=== PATIENT | male | born 1980 | race Caucasian/White ===

== ENCOUNTER 2016-12-04 09:43 | Emergency (ER) | payer MEDICAID ==
[~2016-12-04] VITALS: Ht 175.3 cm; Wt 94.8 kg
[~2016-12-04 09:43] MED LIST: AMITRIPTYLINE; BACL10TA PO; EZET10TA5 PO; HCT25T PO; IRB150T PO; LOXA10CA6 PO; MELO-198 PO; PANT20TA2 PO; TRL300 PO
--- OUTSIDE RECORDS SUMMARY | 2016-12-04 09:48 | XMS REPORT | Continuity of Care Document ---
Author Author [facility] Organization [facility] Address Unknown Phone Unavailable Care Team Providers [employer] Name Role Phone Starr Lepe PCP [phone] Source Comments Some departments are not documenting in the electronic medical record. If you do not see the information that you expected, contact Release of Information in the Health Information Management department at [phone] for further assistance in locating additional records.[facility] Active Allergies and Adverse Reactions Allergen Noted Date Severity Reactions Comments Penicillins 09/07/2015 Medium HIVES Rocephin 09/07/2015 Low UNKNOWN Current Medications Prescription Sig. Disp. Refills Start End Date Status Date amLODIPine (NORVASC) 5 mg Take 5 mg by mouth daily. Active tablet vortioxetine (BRINTELLIX) Take 20 mg by mouth Active 20 mg tab daily. ibuprofen (MOTRIN) 800 mg Take 800 mg by mouth Active tablet every 6 hours as needed for Pain. HYDROcodone/acetaminophen Take 1 Tab by mouth every Active (NORCO; VICODIN) 5-325 mg 4 hours as needed for tablet Pain irbesartan (AVAPRO) 300 Take 300 mg by mouth at Active mg tablet bedtime daily. DIPHENHYDRAMINE HCL Take by mouth as Needed. Active (BENADRYL ALLERGY PO) diazepam (VALIUM) 2 mg Take 2 mg by mouth every Active tablet 6 hours as needed for Anxiety. COQ10 (UBIQUINOL) PO Take 600 mg by mouth. Active fish oil /omega-3 fatty Take 1 Cap by mouth Active acids (SEA-OMEGA) daily. 340/1000 mg capsule FOLIC ACID PO Take 0.4 mg by mouth Active daily. GLUC/CHARLENE-MSM#1/VIT Take by mouth. Active C/FIORDALIZA/BOR (ZTCUKWFK-STTEU-JHV(WITH BORON) PO) MULTIVITAMINS WITH Take by mouth. Active FLUORIDE (MULTI-VITAMIN PO) omeprazole DR(+) Take 20 mg by mouth Active (PRILOSEC) 20 mg capsule daily. traMADol (ULTRAM) 50 mg Take 50 mg by mouth every Active tablet 6 hours as needed for Pain. riboflavin(+) (VITAMIN Take 100 mg by mouth Active B-2) 100 mg tab daily. ASCORBATE CALCIUM Take 1,000 mg by mouth. Active (VITAMIN C PO) OXcarbazepine (TRILEPTAL) Take 1 Tab by mouth twice 60 Tab 6 09/07/20 Active 300 mg tablet daily. 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 Social History Tobacco Use Types Packs/Day Years Used Date Never Smoker Smokeless Tobacco: Never Used Alcohol Use Drinks/Week oz/Week Comments No Last Filed Vital Signs Vital Sign Reading Time Taken Blood Pressure 141/80 01/11/2016 11:02 AM CDT Pulse 78 01/11/2016 11:02 AM CDT Temperature - - Respiratory Rate - - Height 1.753 m (5' 9") 01/11/2016 11:00 AM CDT Weight 108.863 kg (240 lb) 01/11/2016 11:00 AM CDT Body Mass Index 35.43 01/11/2016 11:00 AM CDT Oxygen Saturation - - Plan of Care Health Maintenance Due Date Last Done Comments Physical (Comprehensive) 1988 Exam Pertussis Vaccine 1992 Tetanus Vaccine 1998 Influenza Vaccine 06/29/2016 Results from Last 3 Months Not on file
[2016-12-04] MEDS ORDERED: [UNRECOGNIZED DRUG - OTHER] (09:58)
[2016-12-04] MEDS ORDERED: NORVAS (09:59)
[2016-12-04] MEDS ORDERED: NORVASC (10:00)
[2016-12-04] MEDS ORDERED: ASPIRIN 81 MG CHEW (CHILDREN'S ASA) PO ONE (10:30)
[2016-12-04] MEDS ORDERED: LIDOCAINE 2% VISCOUS 15 ML UDC PO ONE (10:30)
[2016-12-04] MEDS ORDERED: ANTACID SUSP 30 ML UDC (MYLANTA) PO ONE (10:30)
[2016-12-04 10:36] LABS: BASOPHILS # (AUTO) 0.1 10^3/uL (0.0-0.1); BASOPHILS % (AUTO) 1 % (0-10); EOSINOPHILS # (AUTO) 0.1 10^3/uL (0.0-0.3); EOSINOPHILS % (AUTO) 1 % (0-10); LYMPHOCYTES # (AUTO) 2.9 X 10^3 (1.0-4.0); LYMPHOCYTES % (AUTO) 36 % (12-44); MEAN CORPUSCULAR HEMOGLOBIN 31 PG (25-34); MEAN CORPUSCULAR HGB CONC 35 G/DL (32-36); MEAN CORPUSCULAR VOLUME 87 FL (80-99); MEAN PLATELET VOLUME 10.6 FL (7.4-10.4); MONOCYTES # (AUTO) 0.7 X 10^3 (0.0-1.0); MONOCYTES % (AUTO) 9 % (0-12); NEUTROPHILS # (AUTO) 4.3 X 10^3 (1.8-7.8); NEUTROPHILS % (AUTO) 53 % (42-75); PLATELET COUNT 276 10^3/uL (130-400); RED BLOOD COUNT 4.82 10^6/uL (4.35-5.85); RED CELL DISTRIBUTION WIDTH 13.2 % (10.0-14.5); WHITE BLOOD COUNT 8.1 10^3/uL (4.3-11.0)
[2016-12-04 10:48] LABS: PROTHROMBIN TIME PATIENT 12.5 SEC (12.2-14.7)
[2016-12-04 11:00] LABS: ALANINE AMINOTRANSFERASE 88 U/L (0-55); ALBUMIN 4.5 G/DL (3.2-4.5); ANION GAP 11 MMOL/L (5-14); ASPARTATE AMINO TRANSFERASE 27 U/L (5-34); BILIRUBIN,TOTAL 0.3 MG/DL (0.1-1.0); BLOOD UREA NITROGEN 17 MG/DL (7-18); BUN/CREATININE RATIO 21; CALCIUM 9.2 MG/DL (8.5-10.1); CARBON DIOXIDE 25 MMOL/L (21-32); CHLORIDE 105 MMOL/L (98-107); GFR ESTIMATED > 60; GLUCOSE 99 MG/DL (70-105); LIPASE 18 U/L (8-78); MAGNESIUM 2.7 MG/DL (1.8-2.4); SODIUM 141 MMOL/L (135-145); TOTAL PROTEIN 7.7 G/DL (6.4-8.2)
[2016-12-04 11:06] LABS: MYOGLOBIN SERUM 123.2 NG/ML (10.0-92.0)
--- NOTE | 2016-12-04 11:07 | Diagnostic Imaging Report ---
INDICATION: Chest pain. Portable chest at 10:56 a.m. FINDINGS: Heart size and pulmonary vascularity are normal. Lungs are clear. There are no effusions or pneumothoraces. IMPRESSION: Negative chest. Dictated by: Dictated on workstation # [id number]
--- NOTE | 2016-12-04 11:21 | ED Chest Pain ---
General Chief Complaint: Chest Wall/Rib Pain Stated Complaint: CHEST PAIN Nursing Triage Note: AMB TO ROOM C/O R SIDE CHEST PAIN ONSET YESTERDAY AT 430 Nursing Sepsis Screen: No Definite Risk Source: patient, old records Exam Limitations: no limitations History of Present Illness Time seen by provider: 09:48 Initial Comments Man presents to the emergency room with complaints of intermittent chest pain for about one week but much more intense over the last 12 hours. Pain intensified around 20:00 last night, dissipated, and then return more intensely at 04:00. He has had some mild shortness of air and dizziness and some generalized weakness. He reports having increased stress recently especially with an anticipated arrival of a child soon. He has been worked up for chest pain previously but reports this is more intense. In 2013 he had a negative stress echocardiogram. He reports starting Zoloft about 2 weeks ago for treatment of his stress and anxiety. He reports pain is presently approximately 3/10. He also has some tenderness in the epigastrium and lower sternal area. He later reports urinary frequency. Allergies and Home Medications Allergies Coded Allergies: Penicillins (Verified Allergy, Unknown, 07/02/09) ceftriaxone sodium (Verified Adverse Reaction, Mild, 01/01/12) Home Medications (Reported) (Reported) Baclofen 10 Mg Tablet #90 10 MG PO DAILY (Reported) Irbesartan 150 Mg Tab 150 MG PO DAILY (Reported) Review of Systems Constitutional: see HPI EENTM: No Symptoms Reported Respiratory: See HPI Cardiovascular: See HPI Gastrointestinal: See HPI Genitourinary: Frequency Musculoskeletal: see HPI Skin: no symptoms reported Psychiatric/Neurological: No Symptoms Reported Endocrine: No Symptoms Reported Hematologic/Lymphatic: No Symptoms Reported Past Givycqb-Lhcsbq-Cmhsai Hx Patient Social History Alcohol Use: Denies Use Recreational Drug Use: No Smoking Status: Never a Smoker Recent Foreign Travel: No Contact w/Someone Who Travel: No Recent Infectious Disease Expo: No Recent Hopitalizations: No Immunizations Up To Date Date of Influenza Vaccine: Jul 29, 2016 Surgeries HX Surgeries: Yes Surgeries: Gallbladder, Orthopedic, Vasectomy Respiratory Hx Respiratory Disorders: No Cardiovascular Hx Cardiac Disorders: Yes Cardiac Disorders: High Cholesterol, Hypertension Neurological Hx Neurological Disorders: No Genitourinary Hx Genitourinary Disorders: No Gastrointestinal Hx Gastrointestinal Disorders: Yes Gastrointestinal Disorders: Gastroesophageal Reflux Musculoskeletal Hx Musculoskeletal Disorders: Yes (SHOULDER/KNEE SURGERY) Endocrine Hx Endocrine Disorders: Yes (congenital mitochondrial disorder) HEENT HX ENT Disorders: No Cancer Hx Cancer: No Psychosocial Hx Psychiatric Problems: Yes Behavioral Health Disorders: Anxiety, Depression Integumentary HX Skin/Integumentary Disorder: No Blood Transfusions Hx Blood Disorders: No Physical Exam Vital Signs Vital Sign - Last 12Hours 12/04/16 09:43 Temp 96.7 Pulse 79 Resp 18 B/P 136/92 Pulse Ox 98 O2 Delivery Nasal Cannula O2 Flow Rate 2 Capillary Refill : Less Than 3 Seconds General Appearance: WD/WN Mild Distress HEENT: PERRL/EOMI Normal ENT Inspection Pharynx Normal Neck: Normal Inspection Respiratory: Lungs Clear Normal Breath Sounds No Accessory Muscle Use No Respiratory Distress Other (lower sternal area tender to palpation) Cardiovascular: Regular Rate, Rhythm No Edema No Murmur Gastrointestinal: Normal Bowel Sounds Soft Tenderness (epigastrium) Extremity: Normal Inspection Non Tender No Calf Tenderness No Pedal Edema Other (negative Jose A) Neurologic/Psychiatric: Alert Oriented x3 No Motor/Sensory Deficits Normal 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 Norm as Tested Skin: Normal Color Warm/Dry Progress/Results/Core Measures Results/Orders Lab Results Laboratory Tests Test 12/04/16 10:09 12/04/16 10:30 Range/Units Urine Bacteria NEGATIVE /HPF Urine Bilirubin NEGATIVE NEGATIVE Urine Casts NONE /LPF Urine Clarity CLEAR Urine Color YELLOW Urine Crystals NONE /LPF Urine Culture Indicated NO Urine Glucose (UA) NEGATIVE NEGATIVE Urine Ketones NEGATIVE NEGATIVE Urine Leukocyte Esterase NEGATIVE NEGATIVE Urine Mucus NEGATIVE /LPF Urine Nitrite NEGATIVE NEGATIVE Urine Protein NEGATIVE NEGATIVE Urine RBC NONE /HPF Urine RBC (Auto) NEGATIVE NEGATIVE Urine Specific [place] 1.020 1.016-1.022 Urine Squamous Epithelial Cells RARE /HPF Urine Urobilinogen NORMAL NORMAL MG/DL Urine WBC RARE /HPF Urine pH 6 5-9 Activated Partial Thromboplast Time 27 24-35 SEC Alanine Aminotransferase (ALT/SGPT) 88 H 0-55 U/L Albumin 4.5 3.2-4.5 G/DL Alkaline Phosphatase 91 40-136 U/L Anion Gap 11 5-14 MMOL/L Aspartate Amino Transf (AST/SGOT) 27 5-34 U/L BUN/Creatinine Ratio 21 Basophils # (Auto) 0.1 0.0-0.1 10^3/uL Basophils (%) (Auto) 1 0-10 % Blood Urea Nitrogen 17 7-18 MG/DL Calcium Level 9.2 8.5-10.1 MG/DL Carbon Dioxide Level 25 21-32 MMOL/L Chloride Level 105 98-107 MMOL/L Creatinine 0.80 0.60-1.30 MG/DL Eosinophils # (Auto) 0.1 0.0-0.3 10^3/uL Eosinophils (%) (Auto) 1 0-10 % Estimat Glomerular Filtration Rate > 60 Glucose Level 99 70-105 MG/DL Hematocrit 42 40-54 % Hemoglobin 14.7 13.3-17.7 G/DL INR Comment 1.0 0.8-1.4 Lipase 18 8-78 U/L Lymphocytes # (Auto) 2.9 1.0-4.0 X 10^3 Lymphocytes (%) (Auto) 36 12-44 % Magnesium Level 2.7 H 1.8-2.4 MG/DL Mean Corpuscular Hemoglobin 31 25-34 PG Mean Corpuscular Hemoglobin Concent 35 32-36 G/DL Mean Corpuscular Volume 87 80-99 FL Mean Platelet Volume 10.6 H 7.4-10.4 FL Monocytes # (Auto) 0.7 0.0-1.0 X 10^3 Monocytes (%) (Auto) 9 0-12 % Myoglobin 123.2 H 10.0-92.0 NG/ML Neutrophils # (Auto) 4.3 1.8-7.8 X 10^3 Neutrophils (%) (Auto) 53 42-75 % Platelet Count 276 130-400 10^3/uL Potassium Level 4.0 3.6-5.0 MMOL/L Prothrombin Time 12.5 12.2-14.7 SEC Red Blood Count 4.82 4.35-5.85 10^6/uL Red Cell Distribution Width 13.2 10.0-14.5 % Sodium Level 141 135-145 MMOL/L Total Bilirubin 0.3 0.1-1.0 MG/DL Total Protein 7.7 6.4-8.2 G/DL Troponin I < 0.30 <0.30 NG/ML White Blood Count 8.1 4.3-11.0 10^3/uL My Orders Orders-ANA NUÑEZ MD Cbc With Automated Diff (12/04/16 10:25) Magnesium (12/04/16 10:25) Chest 1 View, Ap/Pa Only (12/04/16 10:25) Ekg Tracing (12/04/16 10:25) Cardiac Profile 1 (12/04/16 10:25) Comprehensive Metabolic Panel (12/04/16 10:25) Myoglobin Serum (12/04/16 10:25) Protime With Inr (12/04/16 10:25) Partial Thromboplastin Time (12/04/16 10:25) O2 (12/04/16 10:25) Monitor-Rhythm Ecg Trace Only (12/04/16 10:25) Lipid Panel (12/05/16 06:00) Aspirin Chewable Tablet (Baby Aspirin Ch (12/04/16 10:30) Saline Lock/Iv-Start (12/04/16 10:25) Lipase (12/04/16 10:25) Lidocaine 2% Viscous 15 Ml (Xylocaine Vi (12/04/16 10:30) Antacid Suspension (Mylanta Suspension (12/04/16 10:30) Ua Culture If Indicated (12/04/16 11:24) Ketorolac Injection (Toradol Injection) (12/04/16 11:45) Medications Given in ED Current Medications Medications Dose Ordered Sig/Annika Route Start Time Stop Time Status Last Admin Dose Admin Al Hydrox/Mg Hydrox/Simethicone 30 ml ONCE ONCE PO 12/04/16 10:30 12/04/16 10:31 DC 12/04/16 10:33 30 ML Aspirin 324 mg ONCE ONCE PO 12/04/16 10:30 12/04/16 10:31 DC 12/04/16 10:34 324 MG Lidocaine HCl 15 ml ONCE ONCE PO 12/04/16 10:30 12/04/16 10:31 DC 12/04/16 10:35 15 ML Vital Signs/I&O Vital Sign - Last 12Hours 12/04/16 12/04/16 12/04/16 09:43 09:43 10:34 Temp 96.7 96.7 Pulse 79 Resp 18 B/P 136/92 Pulse Ox 98 O2 Delivery Nasal Cannula Room Air O2 Flow Rate 2 Blood Pressure Mean: 107 Progress Note : Time: 11:26 Progress Note Patient was treated with a GI cocktail as he had epigastric tenderness and tenderness to palpation over the lower chest. He now reports he cannot determine if the GI cocktail helped his chest pain. Workup is essentially unremarkable. Patient now complains of urinary frequency. A UA was ordered to workup this complaint. Patient's cardiopulmonary workup was unremarkable. Patient had a negative stress echo in 2013 and pain is of an atypical nature. Case was reviewed with Dr. Duckworth. We concur that he can safely follow up in the outpatient setting in regard to his cardiac health. ECG Initial ECG Impression Date: Dec 04, 2016 Initial ECG Impression Time: 09:46 Initial ECG Rate: 71 Initial ECG Rhythm: Normal Sinus Initial ECG Intervals: Normal Initial ECG Impression: Normal Comment Normal sinus rhythm with no ST elevation or depression. No abnormal intervals or axis deviation. Diagnostic Imaging Diagonstic Imaging: Xray Plain Films/CT/US/NM/MRI: chest Comments Chest x-ray report reviewed. See report below: NAME: [facility] REC#: [id number] PT STATUS: REG ER : 1980 PHYSICIAN: ANA NUÑEZ MD ADMIT DATE: 12/04/16/ER Draft Date of Exam:12/04/16 CHEST 1 VIEW, AP/PA ONLY INDICATION: Chest pain. Portable chest at 10:56 a.m. FINDINGS: Heart size and pulmonary vascularity are normal. Lungs are clear. There are no effusions or pneumothoraces. IMPRESSION: Negative chest. Dictated on workstation # [id number] Dict: 12/04/16 1103 Trans: 12/04/16 1107 [id number] Interpreted by: OSCAR WATKINS Departure Impression Impression: Primary Impression: Atypical chest pain Additional Impressions: Urinary frequency Abdominal discomfort, epigastric Disposition: 01 HOME, SELF-CARE Condition: Stable Departure-Patient Inst. Decision time for Depature: 11:40 Referrals: RONAK SALAZAR DO (PCP) Primary Care Physician Patient Instructions: Acute Abdomen (Belly Pain), Chest Pain That Is Not Caused by the Heart (DC) Add. Discharge Instructions: Continue taking Nexium for acid reflux. Take Tylenol for your pain. Follow-up with your primary care provider and Dr. Duckworth as soon as possible. All discharge instructions reviewed with patient and/or family. Voiced understanding. ANA NUÑEZ MD Dec 04, 2016 11:21
[2016-12-04 11:36] LABS: BILIRUBIN,URINE NEGATIVE (NEGATIVE); KETONES,URINE NEGATIVE (NEGATIVE); LEUKOCYTE ESTERASE ,URINE NEGATIVE (NEGATIVE); NITRITE,URINE NEGATIVE (NEGATIVE); PH,URINE 6 (5-9); PROTEIN,URINE NEGATIVE (NEGATIVE); UROBILINOGEN,URINE NORMAL (NORMAL)
[2016-12-04] MEDS ORDERED: KETOROLAC 30 MG/ML VIAL IVP ONE (11:45)
[2016-12-04 11:47] LABS: SQUAMOUS EPITHELIAL CELL,UR RARE /HPF; WBC,URINE RARE /HPF
[2016-12-04 12:07] VITALS: BP 138/92
== END 2016-12-04 12:10 | disposition home or self-care (01) ==
LOC: EDUNIT# 09:43 → ER 09:44
DX: R07.89 Other chest pain (principal); R10.13 Epigastric pain; R35.0 Frequency of micturition; I10 Essential (primary) hypertension; Z79.899 Other long term (current) drug therapy
CPT/HCPCS: 36415; 71010; 80053; 81000; 83690; 83735; 83874; 84484; 85025; 85610; 85730; 93005; 93041; 96374

== ENCOUNTER → 2017-02-28 | Outpatient (CLI) | payer MEDICAID ==
[~2017-02-28] MED LIST changes: +NORVAS; +NORVASC; +[UNRECOGNIZED DRUG - OTHER]
--- NOTE | 2017-02-28 13:13 | Diagnostic Imaging Report ---
EXAMINATION: Three views of the left elbow. INDICATION: Injury. FINDINGS: There is no fracture, dislocation, or radiopaque foreign body. There is prominence of the anterior fat pad. The posterior fat pad is not elevated. This could be related to a small elbow effusion. A small spur is seen at the olecranon near the quadriceps insertion site. IMPRESSION: No fracture is seen. Question of a small elbow effusion. Dictated by: Dictated on workstation # [id number]
== END ==
LOC: RAD 11:35
PROVIDERS: ATTEND Family Medicine
DX: S59.902A Unspecified injury of left elbow, initial encounter (principal); X58.XXXA Exposure to other specified factors, initial encounter; Y99.8 Other external cause status; Y93.E6 Activity, residential relocation
CPT/HCPCS: 73080

== ENCOUNTER → 2017-11-28 | Outpatient (CLI) | payer MEDICAID ==
--- NOTE | 2017-11-28 17:08 | Diagnostic Imaging Report ---
INDICATION: Injury with neck pain. AP, lateral, and odontoid views of the cervical spine are obtained. No fracture or acute bony abnormality is seen. Disc spaces show no significant narrowing. There is no prevertebral soft tissue swelling. Odontoid appears intact. IMPRESSION: Negative cervical spine series. Dictated by: Dictated on workstation # [id number]
--- NOTE | 2017-11-28 17:09 | Diagnostic Imaging Report ---
INDICATION: Scapular pain post injury AP and lateral views of the scapula are obtained. No overt fracture or acute bony abnormality is seen. IMPRESSION: Negative left scapula. Dictated by: Dictated on workstation # [id number]
--- NOTE | 2017-11-28 17:10 | Diagnostic Imaging Report ---
INDICATION: Left shoulder pain post injury. Internal and external rotated views of the left shoulder are obtained. No fracture or acute bony abnormality is seen. Joint spaces are unremarkable. IMPRESSION: Negative left shoulder. Dictated by: Dictated on workstation # [id number]
== END ==
LOC: RAD 16:27
PROVIDERS: ATTEND Family Medicine
DX: S49.92XA Unspecified injury of left shoulder and upper arm, initial encounter (principal); S19.9XXA Unspecified injury of neck, initial encounter; W20.8XXA Other cause of strike by thrown, projected or falling object, initial encounter
CPT/HCPCS: 72040; 73010; 73030

== ENCOUNTER → 2018-01-01 | Outpatient (CLI) | payer MEDICAID ==
--- NOTE | 2018-01-01 12:14 | Diagnostic Imaging Report ---
PROCEDURE: MR imaging cervical spine without contrast. TECHNIQUE: Multiplanar, multisequence MR imaging of the cervical spine was performed without contrast. INDICATION: Neck pain with radiculopathy. COMPARISON: Cervical spine radiographs 11/28/2017. FINDINGS: Normal alignment. Vertebral body heights preserved. Normal bone marrow signal. No abnormal signal in the cervical spinal cord. Small broad-based disc bulges at C3-C4 and C4-C5 results in only mild spinal canal narrowing. Uncovertebral and facet arthropathy results in mild bilateral neural foraminal narrowing at C3-C4 and C4-C5. No high-grade neural impingement in the cervical spine. The visualized paravertebral soft tissues are unremarkable. IMPRESSION: Mild spondylotic changes result in mild spinal canal and bilateral neural foraminal narrowing at C3-C4 and C4-C5. No high-grade neural impingement. No acute osseous findings. No abnormal signal in the cervical spinal cord. Dictated by: Dictated on workstation # [id number]
--- NOTE | 2018-01-01 12:16 | Diagnostic Imaging Report ---
EXAM: MRI THORACIC SPINE W/O CON INDICATION: Back pain. COMPARISON: Thoracic spine radiographs 02/16/2015. FINDINGS: Normal alignment. Vertebral body heights ??are preserved. Mild degenerative endplate changes and Schmorl's nodes at T6-T7 and T7-T8. Bone marrow signal is otherwise unremarkable. Small disc protrusions at T8-T9 and T9-T10 results in no substantial spinal canal narrowing. No neural foraminal narrowing in the thoracic spine. No abnormal signal in the thoracic spinal cord. Well-circumscribed T2 hyperintense lesions in the partially visualized kidneys presumably represent benign cysts but are technically indeterminate. IMPRESSION: Mild spondylotic changes result in no neural impingement. No abnormal signal the thoracic spinal cord. No acute osseous findings. Dictated by: Dictated on workstation # [id number]
== END ==
LOC: RAD 10:38
PROVIDERS: ATTEND Psychiatry & Neurology Neurology
DX: M48.02 Spinal stenosis, cervical region (principal); M47.22 Other spondylosis with radiculopathy, cervical region; M47.24 Other spondylosis with radiculopathy, thoracic region
CPT/HCPCS: 72141; 72146

== ENCOUNTER → 2018-01-02 | Outpatient (CLI) | payer MEDICAID ==
--- NOTE | 2018-01-02 12:02 | Diagnostic Imaging Report ---
PROCEDURE: MRI lumbar spine. TECHNIQUE: Multiplanar, multisequence MRI of the lumbar spine was performed without contrast. INDICATION: Back pain. No prior MRI lumbar spine studies are available for comparison. FINDINGS: Curvature and alignment of the lumbar spine is normal. The vertebral body heights are well maintained. Marrow signal intensity is unremarkable apart from a Schmorl's node involving the superior endplate of L5 vertebral body. This does demonstrate some minimal surrounding edema. There also appears to be a tiny Schmorl's node involving the inferior endplate of L4 with some associated edema. Remaining vertebral bodies show normal marrow signal. There is some desiccation of the L3-L4 and L4-L5 discs compatible with degenerative disc disease. The conus is unremarkable at the T12-L1 level. T12-L1: Unremarkable. L1-L2: Unremarkable. L2-L3: Unremarkable. L3-L4: There is some annular bulging present. There is linear increased T2 signal identified in the posterior midline annulus consistent with a small annular tear. There is some midline bulging indenting the ventral thecal sac. Mild canal narrowing is seen. There is narrowing of the lateral recesses bilaterally. No significant neuroforaminal stenosis is seen. L4-L5: Annular bulging is present indenting the ventral thecal sac. There is mild narrowing of the central canal. There is more significant narrowing of the lateral recesses. Far lateral disc bulging does produce some neuroforaminal narrowing bilaterally. The broad-based bulging does abut the L5 nerve root origins bilaterally. L5-S1: Central canal is widely patent. The neuroforamina are patent. There does appear to be hypertrophic facet degenerative change. IMPRESSION: L3-L4 and L4-L5 degenerative disc disease with annular bulging, as described above. There is central canal, lateral recess and neuroforaminal narrowing described level by level above. Patient does also have Schmorl's nodes at the L4 and L5 level with some surrounding edema, perhaps owing to acute Schmorl's nodes. No acute compression fracture is seen. Dictated by: Dictated on workstation # [id number]
== END ==
LOC: RAD 10:30
PROVIDERS: ATTEND Psychiatry & Neurology Neurology
DX: M48.061 Spinal stenosis, lumbar region without neurogenic claudication (principal); M47.27 Other spondylosis with radiculopathy, lumbosacral region; M51.16 Intervertebral disc disorders with radiculopathy, lumbar region; M51.46 Schmorl's nodes, lumbar region
CPT/HCPCS: 72148

== ENCOUNTER → 2018-03-29 | Outpatient (CLI) | payer MEDICAID ==
--- NOTE | 2018-03-29 14:00 | Diagnostic Imaging Report ---
INDICATION: Pain. COMPARISON: None. FINDINGS: Three views of the right shoulder are obtained. No acute fracture, malalignment or osseous destructive process is seen. IMPRESSION: Negative right shoulder. Dictated by: Dictated on workstation # [id number]
== END ==
LOC: RAD 11:16
PROVIDERS: ATTEND Family Medicine
DX: M25.511 Pain in right shoulder (principal)
CPT/HCPCS: 73030

== ENCOUNTER 2019-02-01 16:39 | Emergency (ER) | payer OTHER, MEDICAID ==
[~2019-02-01] VITALS: Ht 175.3 cm; Wt 79.4 kg
[2019-02-01 17:12] LABS: HEMOGLOBIN 14.7 G/DL (13.3-17.7); RED CELL DISTRIBUTION WIDTH 12.5 % (10.0-14.5); WHITE BLOOD COUNT 12.4 10^3/uL (4.3-11.0)
[2019-02-01] MEDS ORDERED: fentaNYL INJECTION 100 MCG/2 ML AMP IVP ONE (17:15)
[2019-02-01] MEDS ORDERED: TETANUS,DIPTH,PERTUSS P/F (BOOSTRIX) 0.5 ML VIAL IM ONE (17:15)
[2019-02-01 17:25] LABS: ALANINE AMINOTRANSFERASE 26 U/L (0-55); ALBUMIN 4.4 GM/DL (3.2-4.5); ALKALINE PHOSPHATASE 86 U/L (40-136); BILIRUBIN,DIRECT 0.2 MG/DL (0.0-0.3); BILIRUBIN,INDIRECT 0.2 MG/DL; BILIRUBIN,TOTAL 0.4 MG/DL (0.1-1.0); BUN/CREATININE RATIO 16; CALCIUM 9.5 MG/DL (8.5-10.1); CARBON DIOXIDE 18 MMOL/L (21-32); CHLORIDE 106 MMOL/L (98-107); CREATININE SERUM 1.14 MG/DL (0.60-1.30); GFR ESTIMATED > 60; GLUCOSE 121 MG/DL (70-105); POTASSIUM 3.6 MMOL/L (3.6-5.0); SODIUM 138 MMOL/L (135-145); TOTAL PROTEIN 7.6 GM/DL (6.4-8.2)
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
--- OUTSIDE RECORDS SUMMARY | 2019-02-01 18:55 | XMS REPORT ---
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 Name Role Phone Migration, Doctor Unavailable Unavailable PROBLEMS Type Condition ICD9-CM Code ZAT56-SX Code Onset Dates Condition Status SNOMED Code Problem Pain in thoracic spine 724.1 Active 451738076 Problem Candidiasis of skin and nails 112.3 Active 011278147 Problem Need for prophylactic vaccination and inoculation, Influenza V04.81 Active 159803119 Problem Headache 784.0 Active 85068210 Problem Cervicalgia 723.1 Active 69632546 Problem Pain in joint, shoulder region 719.41 Active 349504468 ALLERGIES No Information ENCOUNTERS Encounter Location Date Diagnosis [facility] [id number] [place] [phone] Jan, [facility] [id number] [place] [address]- [address] Jan, [facility] [id number] [place] [address]- [address] Jun, [facility] [id number] [place] [address]- [address] Jun, [facility] [address] [address] Apr, [facility] [id number] [place] [address]- [address] Mar, [facility] [id number] [place] [address] 388102- [address] February, [facility] [id number] [place] [address] [id number] Dec, [facility] [id number] [place] [address]- [address] Nov, [facility] [address] [facility] [id number] [place] [address] Oct, [facility] [address] [id number] [place] [address] Oct, [facility] [place] [facility] [address] [id number] [place] [address] Sep, [facility] [place] [facility] [address] [id number] [place] [address] Sep, [facility] [place] [facility] [address] [id number] [place] [address] Sep, [facility] [place] [facility] [address] [id number] [place] [address] Sep, [facility] [place] [facility] [address] [id number] [place] [address] Sep, [facility] [place] [facility] [address] [id number] [place] [address] February, [facility] [address] [id number] [place] [address] Dec, [facility] [place] [facility] [address] [id number] [place] [address] Dec, [facility] [address] [id number] [place] [address] Dec, [facility] [place] [facility] [address] [id number] [place] [address] 14 Nov, 2011 [facility] [place] [facility] [address] [id number] [place] [address] 07 Nov, 2011 [facility] [place] [facility] [address] [id number] [place] [address] Nov, [facility] [place] [facility] [address] [id number] [place] [address] 03 Nov, 2011 [facility] [place] [facility] [address] [id number] [place] [address] Oct, [facility] [address] [facility] [id number] [address] Oct, [facility] [address] [address] Aug, [facility] [address] [address] Aug, [facility] [address] [address] Aug, [facility] [id number] [address] Jul, [facility] [id number] [address] Jul, IMMUNIZATIONS No Known Immunizations SOCIAL HISTORY Never Assessed REASON FOR VISIT [facility]MR-[facility] PLAN OF CARE VITAL SIGNS MEDICATIONS Unknown Medications RESULTS No Results PROCEDURES No Known procedures INSTRUCTIONS MEDICATIONS ADMINISTERED No Known Medications
--- OUTSIDE RECORDS SUMMARY | 2019-02-01 18:55 | XMS REPORT | Clinical Summary ---
Author Author [facility] Organization [facility] Address Unknown Phone Unavailable Care Team Providers Care Homicide Squad Lieutenant Name Role Phone Wilton Del Angel MD Unavailable Starr Lepe MD PCP Aby Monroe Unavailable Billy Cochran MD Unavailable Source Comments Some departments are not documenting in the electronic medical record. If you do not see the information that you expected, contact Release of Information in the Health Information Management department at [phone] for further assistance in locating additional records.[facility] Allergies Comments Active Allergy Reactions Severity Noted Date Penicillins HIVES Medium 09/07/2015 Ceftriaxone UNKNOWN Low 09/07/2015 Medications End Date Status Medication Sig Dispensed Refills Start Date Active irbesartan (AVAPRO) 300 Take 300 mg 0 mg tablet by mouth at bedtime daily. Active COQ10 (UBIQUINOL) PO Take 600 mg 0 by mouth. Active fish oil /omega-3 fatty Take 1 Cap by 0 acids (SEA-OMEGA) mouth daily. 340/1000 mg capsule Active FOLIC ACID PO Take 0.4 mg 0 by mouth daily. Active GLUC/CHARLENE-MSM#1/VIT Take by 0 C/FIORDALIZA/BOR mouth. (THLULBMK-USVLX-MJG(WITH BORON) PO) Active MULTIVITAMINS WITH Take by 0 FLUORIDE (MULTI-VITAMIN mouth. PO) Active riboflavin(+) (VITAMIN Take 100 mg 0 B-2) 100 mg tab by mouth daily. Active ASCORBATE CALCIUM Take 1,000 mg 0 (VITAMIN C PO) by mouth. Active amLODIPine (NORVASC) 10 Take 10 mg by 0 mg tablet mouth daily. Active acetaminophen/codeine Take 1 tablet 0 (TYLENOL-CODEINE #3) by mouth 300/30 mg tablet every 6 hours as needed for Pain. Max of 4,000 mg of acetaminophen in 24 hours. Active amitriptyline (ELAVIL) Take 100 mg 0 100 mg tablet by mouth at bedtime as needed. Active topiramate (TOPAMAX) 25 Take 25 mg by 0 mg tablet mouth daily. Active metoprolol tartrate Take 25 mg by 0 (LOPRESSOR) 25 mg tablet mouth twice daily. Active CETIRIZINE HCL (ZYRTEC Take by 0 PO) mouth. 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 Last Filed Vital Signs Time Taken Vital Sign Reading 02/21/2018 1:56 PM CDT Blood Pressure 123/80 02/21/2018 1:56 PM CDT Pulse 106 02/21/2018 1:56 PM CDT Temperature 36.6 C (97.8 F) - Respiratory Rate - 02/21/2018 1:56 PM CDT Oxygen Saturation 98% - Inhaled Oxygen - Concentration 02/21/2018 1:56 PM CDT Weight 89.3 kg (196 lb 13.9 oz) 02/21/2018 1:56 PM CDT Height 175.3 cm (5' 9") 02/21/2018 1:56 PM CDT Body Mass Index 29.07 Plan of Treatment Health Maintenance Due Date Last Done Comments PHYSICAL (COMPREHENSIVE) 1988 EXAM HIV SCREENING 1996 DTAP/TDAP VACCINES ( - 1999 Tdap) INFLUENZA VACCINE 05/29/2019 08/28/2003, 09/12/2002, 08/23/2001 Results Not on filefrom Last 3 Months Insurance Type Payer Benefit Subscriber ID Effective Phone Address Plan / Dates Group Medicaid [employer] [employer] xxxxxxxxxxx 2010- [facility] Present HEALTH [address] [facility] (Home) [place] [address] Advance Directives Patient has advance care planning documents on file. For more information, please contact: [facility] [address] [place] [address]
--- OUTSIDE RECORDS SUMMARY | 2019-02-01 18:56 | XMS REPORT | Continuity of Care Document ---
Author Organization Unknown Address Unknown Allergies Active Description Code Type Severity Reaction Onset Reported/Identified Relationship to Patient Clinical Status Yes Penicillins [id number] Drug Allergy Unknown N/A 07/02/2009 Yes Penicillins Drug Allergy N/A N/A 06/22/2011 Yes Rocephin Drug Allergy N/A N/A 06/22/2011 Yes Penicillins Drug Allergy 06/22/2011 Yes Rocephin Drug Allergy 06/22/2011 Yes penicillamine Drug Allergy N/ A N/A 08/29/2011 Yes penicillamine Drug Allergy 08/29/2011 Yes ceftriaxone sodium [id number] Drug Allergy Mild N/A 01/01/2012 Medications There is no data. Problems Date Dx Coded Attending Type Code Diagnosis Diagnosed By KATIE CORREA, ROBBY Villela Ot M25.561 PAIN IN RIGHT KNEE 09/27/1444 RACHEAL TO Ot M54.2 CERVICALGIA 01/14/2009 296.90 MOOD DISORDER 01/14/2009 307.47 SI DYSSOMNIA NOS 01/14/2009 296.90 MOOD DISORDER 01/14/2009 307.47 SI DYSSOMNIA NOS 01/14/2009 DIMA OATES DO 296.90 MOOD DISORDER 01/14/2009 DIMA OATES DO 307.47 SI DYSSOMNIA NOS 01/14/2009 296.90 MOOD DISORDER 01/14/2009 307.47 SI DYSSOMNIA NOS 01/14/2009 DIMA OATES DO 296.90 MOOD DISORDER 01/14/2009 DIMA OATES DO 307.47 SI DYSSOMNIA NOS 01/14/2009 DIMA OATES DO 296.90 MOOD DISORDER 01/14/2009 DIMA OATES DO 307.47 SI DYSSOMNIA NOS 04/15/2009 356.2 HEREDITARY SENSORY NEUROPATHY 04/15/2009 356.2 HEREDITARY SENSORY NEUROPATHY 04/15/2009 DIMA OATES DO 356.2 HEREDITARY SENSORY NEUROPATHY 04/15/2009 356.2 HEREDITARY SENSORY NEUROPATHY 04/15/2009 OATES DO DIMA K 356.2 HEREDITARY SENSORY NEUROPATHY 04/15/2009 OATES DO, DIMA K 356.2 HEREDITARY SENSORY NEUROPATHY 05/26/2009 277.86 PEROXISOMAL DISORDERS 05/26/2009 294.9 OR COG DIS NOS 05/26/2009 277.86 PEROXISOMAL DISORDERS 05/26/2009 294.9 OR COG DIS NOS 05/26/2009 OATES DO, DIMA K 277.86 PEROXISOMAL DISORDERS 05/26/2009 OATES DO, DIMA K 294.9 OR COG DIS NOS 05/26/2009 277.86 PEROXISOMAL DISORDERS 05/26/2009 294.9 OR COG DIS NOS 05/26/2009 OATES DO, DIMA K 277.86 PEROXISOMAL DISORDERS 05/26/2009 OATES DO, DIMA K 294.9 OR COG DIS NOS 05/26/2009 OATES DO, DIMA K 277.86 PEROXISOMAL DISORDERS 05/26/2009 OATES DO, DIMA K 294.9 OR COG DIS NOS 06/17/2010 Ot 401.9 06/17/2010 Ot 719.41 06/17/2010 Ot V57.1 09/12/2010 Ot 719.41 JOINT PAIN- SHLDER 09/12/2010 Ot V57.1 PHYSICAL THERAPY NEC 09/12/2010 Ot V58.49 OTHER SPECIFIED AFTERCARE FOLLOWING SURG 06/22/2011 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 06/22/2011 401.9 HYPERTENSION ( SYSTEMIC) 06/22/2011 461.8 Other Acute Sinusitis 06/22/2011 462 Acute Pharyngitis 06/22/2011 719.46 PAIN IN JOINT INVOLVING LOWER LEG 06/22/2011 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 06/22/2011 401.9 HYPERTENSION ( SYSTEMIC) 06/22/2011 461.8 Other Acute Sinusitis 06/22/2011 462 Acute Pharyngitis 06/22/2011 719.46 PAIN IN JOINT INVOLVING LOWER LEG 06/22/2011 LASHON OHARA DIMA K 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 06/22/2011 OATES DO DIMA K 401.9 HYPERTENSION (SYSTEMIC) 06/22/2011 OATES DO DIMA K 461.8 Other Acute Sinusitis 06/22/2011 LASHON OHARA DIMA K 462 Acute Pharyngitis 06/22/2011 OATES DO, DIMA K 719.46 PAIN IN JOINT INVOLVING LOWER LEG 06/22/2011 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 06/22/2011 401.9 HYPERTENSION ( SYSTEMIC) 06/22/2011 461.8 Other Acute Sinusitis 06/22/2011 462 Acute Pharyngitis 06/22/2011 719.46 PAIN IN JOINT INVOLVING LOWER LEG 06/22/2011 DIMA OATES DO K 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 06/22/2011 DIMA OATES DO K 401.9 HYPERTENSION (SYSTEMIC) 06/22/2011 GLENN OATES DOA K 461.8 Other Acute Sinusitis 06/22/2011 GLENN OATES DOA K 462 Acute Pharyngitis 06/22/2011 GLENN OATES DOA K 719.46 PAIN IN JOINT INVOLVING LOWER LEG 06/22/2011 GLENN OATES DOA K 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 06/22/2011 DIMA OATES DO K 401.9 HYPERTENSION (SYSTEMIC) 06/22/2011 DIMA OATES DO K 461.8 Other Acute Sinusitis 06/22/2011 GLENN OATES DOA K 462 Acute Pharyngitis 06/22/2011 GLENN OATES DOA K 719.46 PAIN IN JOINT INVOLVING LOWER LEG 07/10/2011 836.1 DISLOCATION OF KNEE TEAR OF LATERAL CARTILAGE 07/10/2011 836.1 DISLOCATION OF KNEE TEAR OF LATERAL CARTILAGE 07/10/2011 DIMA OATES DO K 836.1 DISLOCATION OF KNEE TEAR OF LATERAL CARTILAGE 07/10/2011 836.1 DISLOCATION OF KNEE TEAR OF LATERAL CARTILAGE 07/10/2011 DIMA OATES DO K 836.1 DISLOCATION OF KNEE TEAR OF LATERAL CARTILAGE 07/10/2011 DIMA OATES DO K 836.1 DISLOCATION OF KNEE TEAR OF LATERAL CARTILAGE 08/29/2011 461.9 Sinusitis Acute 08/29/2011 462 Acute Pharyngitis 08/29/2011 461.9 Sinusitis Acute 08/29/2011 462 Acute Pharyngitis 08/29/2011 DIMA OATES DO K 461.9 Sinusitis Acute 08/29/2011 DIMA OATES DO K 462 Acute Pharyngitis 08/29/2011 461.9 Sinusitis Acute 08/29/2011 462 Acute Pharyngitis 08/29/2011 OATES DO, DIMA K 461.9 Sinusitis Acute 08/29/2011 OATES DO, DIMA K 462 Acute Pharyngitis 08/29/2011 OATES DO, DIMA K 461.9 Sinusitis Acute 08/29/2011 OATES DO, DIMA K 462 Acute Pharyngitis 09/12/2011 268.9 UNSPECIFIED VITAMIN D DEFICIENCY 09/12/2011 272.4 OTHER AND UNSPECIFIED HYPERLIPIDEMIA 09/12/2011 268.9 UNSPECIFIED VITAMIN D DEFICIENCY 09/12/2011 272.4 OTHER AND UNSPECIFIED HYPERLIPIDEMIA 09/12/2011 OATES DO, DIMA K 268.9 UNSPECIFIED VITAMIN D DEFICIENCY 09/12/2011 OATES DO, DIMA K 272.4 OTHER AND UNSPECIFIED HYPERLIPIDEMIA 09/12/2011 268.9 UNSPECIFIED VITAMIN D DEFICIENCY 09/12/2011 272.4 OTHER AND UNSPECIFIED HYPERLIPIDEMIA 09/12/2011 OATES DO, DIMA K 268.9 UNSPECIFIED VITAMIN D DEFICIENCY 09/12/2011 OATES DO, DIMA K 272.4 OTHER AND UNSPECIFIED HYPERLIPIDEMIA 09/12/2011 OATES DO, DIMA K 268.9 UNSPECIFIED VITAMIN D DEFICIENCY 09/12/2011 OATES DO, DIMA K 272.4 OTHER AND UNSPECIFIED HYPERLIPIDEMIA 12/01/2011 784.0 HEADACHE 12/01/2011 784.0 HEADACHE 12/01/2011 OATES DO, DIMA K 784.0 HEADACHE 12/01/2011 784.0 HEADACHE 12/01/2011 OATES DO, DIMA K 784.0 HEADACHE 12/01/2011 OATES DO, DIMA K 784.0 HEADACHE 12/29/2011 Ot 717.7 CHONDROMALACIA PATELLAE 12/29/2011 Ot V57.1 PHYSICAL THERAPY NEC 01/01/2012 Ot 307.81 TENSION HEADACHE 01/01/2012 Ot 723.1 CERVICALGIA 01/01/2012 Ot V57.1 PHYSICAL THERAPY NEC 01/01/2012 Ot 920 CONTUSION FACE/ SCALP/NCK 01/01/2012 Ot 959.09 INJURY OF FACE AND NECK 01/01/2012 Ot E000.8 OTHER EXTERNAL CAUSE STATUS 01/01/2012 Ot E849.0 ACCIDENT IN HOME 01/01/2012 Ot E885.9 FALL FROM SLIPPING, TRIPPING, OR STUMBLI 01/04/2012 719.41 joint pain, localized in the right shoulder 01/04/2012 719.41 joint pain, localized in the right shoulder 01/04/2012 DIMA OATES DO 719.41 joint pain, localized in the right shoulder 01/04/2012 719.41 joint pain, localized in the right shoulder 01/04/2012 DIMA OATES DO 719.41 joint pain, localized in the right shoulder 01/04/2012 DIMA OATES DO 719.41 joint pain, localized in the right shoulder 02/28/2012 Ot 719.41 JOINT PAIN- SHLDER 02/28/2012 Ot V57.1 PHYSICAL THERAPY NEC 02/28/2012 Ot V58.43 AFTERCARE POST SURGERY INJURY/TRAUMA 03/04/2012 112.3 Candidiasis Of Skin And Nails 03/04/2012 112.3 Candidiasis Of Skin And Nails 03/04/2012 DIMA OATES DO 112.3 Candidiasis Of Skin And Nails 03/04/2012 112.3 Candidiasis Of Skin And Nails 03/04/2012 DIMA OATES DO 112.3 Candidiasis Of Skin And Nails 03/04/2012 DIMA OATES DO 112.3 Candidiasis Of Skin And Nails 06/28/2012 Ot 717.7 CHONDROMALACIA PATELLAE 06/28/2012 Ot V57.1 PHYSICAL THERAPY NEC 11/25/2012 Ot 726.2 SHOULDER REGION DIS NEC 11/25/2012 Ot V57.1 PHYSICAL THERAPY NEC 12/16/2012 723.1 CERVICALGIA 12/16/2012 724.1 PAIN IN THORACIC SPINE 12/16/2012 DIMA OATES DO 723.1 CERVICALGIA 12/16/2012 DIMA OATES DO 724.1 PAIN IN THORACIC SPINE 12/16/2012 DIMA OATES DO K 723.1 CERVICALGIA 12/16/2012 DIMA OATES DO 724.1 PAIN IN THORACIC SPINE 01/14/2013 Ot 723.1 CERVICALGIA 01/14/2013 Ot V57.1 PHYSICAL THERAPY NEC 03/13/2013 KATIE CORREA, ROBBY Villela Ot V57.1 PHYSICAL THERAPY NEC 03/13/2013 KATIE CORREA, ROBBY Villela Ot V58.78 AFTERCARE POST SURGERY MUSCULOSKELETAL S 06/13/2013 BART OSORIO Ot 719.41 JOINT PAIN-SHLDER 06/13/2013 BART OSORIOP Ot V57.1 PHYSICAL THERAPY NEC 06/13/2013 BART OSORIO LEAN MANUFACTURING ENGINEER Ot V58.49 OTHER SPECIFIED AFTERCARE FOLLOWING SURG 07/23/2013 DIMA OATES DO V04.81 FLU SHOT 10/20/2013 VANIA MCKINNEY MD Ot 715.36 LOC OSTEOARTH NOS-L/LEG 10/20/2013 VANIA MCKINNEY MD Ot V57.1 PHYSICAL THERAPY NEC 05/14/2014 WILFRID HUFFMAN MD Ot 272.4 HYPERLIPIDEMIA NEC/NOS 05/14/2014 WILFRID HUFFMAN MD Ot 401.9 HYPERTENSION NOS 05/14/2014 WILFRID HUFFMAN MD Ot 786.50 CHEST PAIN NOS 07/14/2014 OSCAR CURTIS MD Ot 786.50 CHEST PAIN NOS 08/27/2014 VANIA MCKINNEY MD Ot 348.39 OTHER ENCEPHALOPATHY 08/27/2014 VANIA MCKINNEY MD Ot V57.1 PHYSICAL THERAPY NEC 10/05/2014 AKBAR DA SILVA MD Ot 272.4 10/05/2014 AKBAR DA SILVA MD Ot 278.00 10/05/2014 AKBAR DA SILVA MD Ot 397.0 10/05/2014 AKBAR DA SILVA MD Ot 401.9 10/05/2014 AKBAR DA SILVA MD Ot 424.0 10/05/2014 AKBAR DA SILVA MD Ot 786.50 04/07/2015 VANIA MCKINNEY MD Ot 724.1 04/07/2015 VANIA MCKINNEY MD Ot E000.8 04/07/2015 VANIA MCKINNEY MD Ot E888.9 06/29/2015 Ot 719.46 06/29/2015 Ot 277.87 06/29/2015 Ot 784.0 06/29/2015 Ot 277.87 06/29/2015 VANIA MCKINNEY MD Ot 722.4 06/29/2015 AKBAR DA SILVA MD Ot 272.4 06/29/2015 AKBAR DA SILVA MD Ot 278.00 06/29/2015 AKBAR DA SILVA MD Ot 397.0 06/29/2015 AKBAR DA SILVA MD Ot 401.9 06/29/2015 AKBAR DA SILVA MD Ot 424.0 06/29/2015 REKHA CORREA, AKBAR Franco Ot 786.50 06/29/2015 FAYE CORREA, VANIA Griffiths Ot 724.1 06/29/2015 FAYE CORREA, VANIA Griffiths Ot E000.8 06/29/2015 FAYE CORREA, VANIA Griffiths Ot E888.9 06/30/2015 DUGLAS ALICE E COTTON CLEANER Ot 723.4 06/30/2015 DUGLAS ALICE E COTTON CLEANER Ot V57.1 07/01/2015 DUGLAS, ALICE E COTTON CLEANER Ot 723.4 07/01/2015 DUGLAS, ALICE E COTTON CLEANER Ot V57.1 07/01/2015 DUGLAS ALICE E COTTON CLEANER Ot 723.4 07/01/2015 DUGLAS ALICE E COTTON CLEANER Ot V57.1 07/27/2015 DUGLAS ALICE E COTTON CLEANER Ot 723.4 BRACHIAL NEURITIS NOS 07/27/2015 ALICE ARDON COTTON CLEANER Ot V57.1 PHYSICAL THERAPY NEC 07/27/2015 ALICE ARDON E COTTON CLEANER Ot Z51.89 ENCOUNTER FOR OTHER SPECIFIED AFTERCARE 11/26/2015 Ot 719.46 11/26/2015 Ot 277.87 11/26/2015 Ot 784.0 11/26/2015 Ot 277.87 11/26/2015 FAYE CORREA, VANIA Griffiths Ot 722.4 11/26/2015 REKHA CORREA, AKBAR Franco Ot 272.4 11/26/2015 REKHA CORREA, AKBAR Franco Ot 278.00 11/26/2015 REKHA CORREA, AKBAR Franco Ot 397.0 11/26/2015 REKHA CORREA, AKBAR Franco Ot 401.9 11/26/2015 REKHA CORREA, AKBAR Franco Ot 424.0 11/26/2015 AKBAR DA SILVA MD Ot 786.50 11/26/2015 FAYE CORREA, VANIA Griffiths Ot 724.1 11/26/2015 FAYE CORREA, VANIA Griffiths Ot E000.8 11/26/2015 FAYE CORREA, VANIA Griffiths Ot E888.9 12/14/2015 FAYE CORREA, VANIA Griffiths Ot R10.11 02/01/2016 Ot 719.46 02/01/2016 Ot 277.87 02/01/2016 Ot 784.0 02/01/2016 Ot 277.87 02/01/2016 VANIA MCKINNEY MD Ot 722.4 02/01/2016 AKBAR DA SILVA MD Ot 272.4 02/01/2016 AKBAR DA SILVA MD Ot 278.00 02/01/2016 AKBAR DA SILVA MD Ot 397.0 02/01/2016 AKBAR DA SILVA MD Ot 401.9 02/01/2016 AKBAR DA SILVA MD Ot 424.0 02/01/2016 AKBAR DA SILVA MD Ot 786.50 02/01/2016 VANIA MCKINNEY MD Ot 724.1 02/01/2016 VANIA MCKINNEY MD Ot E000.8 02/01/2016 VANIA MCKINNEY MD Ot E888.9 02/01/2016 VANIA MCKINNEY MD Ot R10.11 02/02/2016 RACHEAL TO LEAN MANUFACTURING ENGINEER Ot M54.2 02/04/2016 RACHEAL TO LEAN MANUFACTURING ENGINEER Ot M54.2 02/22/2016 Ot 719.46 JOINT PAIN-L /LEG 02/22/2016 Ot 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 02/22/2016 Ot 784.0 HEADACHE 02/22/2016 Ot 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 02/22/2016 VANIA MCKINNEY MD Ot 722.4 CERVICAL DISC DEGEN 02/22/2016 AKBAR DA SILVA MD Ot 272.4 HYPERLIPIDEMIA NEC/NOS 02/22/2016 AKBAR DA SILVA MD Ot 278.00 OBESITY, NOS 02/22/2016 AKBAR DA SILVA MD Ot 397.0 TRICUSPID VALVE DISEASE 02/22/2016 AKBAR DA SILVA MD Ot 401.9 HYPERTENSION NOS 02/22/2016 AKBAR DA SILVA MD Ot 424.0 MITRAL VALVE DISORDER 02/22/2016 AKBAR DA SILVA MD Ot 786.50 CHEST PAIN NOS 02/22/2016 VANIA MCKINNEY MD Ot 724.1 PAIN IN THORACIC SPINE 02/22/2016 VANIA MCKINNEY MD Ot E000.8 OTHER EXTERNAL CAUSE STATUS 02/22/2016 VANIA MCKINNEY MD Ot E888.9 FALL NOS 02/22/2016 VANIA MCKINNEY MD Ot R10.11 RIGHT UPPER QUADRANT PAIN 02/22/2016 RACHEAL TO LEAN MANUFACTURING ENGINEER Ot M54.2 CERVICALGIA 03/07/2016 RACHEAL TO Ot M54.2 CERVICALGIA 04/04/2016 ROBBY WILSON MD Ot M25.561 PAIN IN RIGHT KNEE 04/05/2016 ROBBY WILSON MD Ot M25.561 PAIN IN RIGHT KNEE 04/19/2016 ROBBY WILSON MD Ot M25.561 PAIN IN RIGHT KNEE 12/04/2016 ANA NUÑEZ MD Ot I10 ESSENTIAL (PRIMARY) HYPERTENSION 12/04/2016 ANA NUÑEZ MD Ot R07.89 OTHER CHEST PAIN 12/04/2016 ANA NUÑEZ MD Ot R07.9 CHEST PAIN, UNSPECIFIED 12/04/2016 ANA NUÑEZ MD Ot R10.13 EPIGASTRIC PAIN 12/04/2016 ANA NUÑEZ MD Ot R35.0 FREQUENCY OF MICTURITION 12/04/2016 ANA NUÑEZ MD Ot Z79.899 OTHER USP (CURRENT) DRUG THERAPY 12/06/2016 ANA NUÑEZ MD Ot I10 ESSENTIAL (PRIMARY) HYPERTENSION 12/06/2016 ANA NUÑEZ MD Ot R07.89 OTHER CHEST PAIN 12/06/2016 ANA NUÑEZ MD Ot R07.9 CHEST PAIN, UNSPECIFIED 12/06/2016 ANA NUÑEZ MD Ot R10.13 EPIGASTRIC PAIN 12/06/2016 ANA NUÑEZ MD Ot R35.0 FREQUENCY OF MICTURITION 12/06/2016 ANA NUÑEZ MD Ot Z79.899 OTHER COMMERCIAL LINES MANAGER (CURRENT) DRUG THERAPY 02/28/2017 Ot 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 02/28/2017 Ot 784.0 HEADACHE 02/28/2017 Ot 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 02/28/2017 FAYE CORREA, VANIA Griffiths Ot 722.4 CERVICAL DISC DEGEN 02/28/2017 AKBAR DA SILVA MD Ot 272.4 HYPERLIPIDEMIA NEC/NOS 02/28/2017 AKBAR DA SILVA MD Ot 278.00 OBESITY, NOS 02/28/2017 AKBAR DA SILVA MD Ot 397.0 TRICUSPID VALVE DISEASE 02/28/2017 AKBAR DA SILVA MD Ot 401.9 HYPERTENSION NOS 02/28/2017 REKHA CORREA, AKBAR Franco Ot 424.0 MITRAL VALVE DISORDER 02/28/2017 AKBAR DA SILVA MD Ot 786.50 CHEST PAIN NOS 02/28/2017 FAYE CORREA, VANIA Griffiths Ot 724.1 PAIN IN THORACIC SPINE 02/28/2017 VANIA MCKINNEY MD Ot E000.8 OTHER EXTERNAL CAUSE STATUS 02/28/2017 VANIA MCKINNEY MD Ot E888.9 FALL NOS 02/28/2017 VANIA MCKINNEY MD Ot R10.11 RIGHT UPPER QUADRANT PAIN 03/01/2017 VANIA MCKINNEY MD Ot S59.902A UNSPECIFIED INJURY OF LEFT ELBOW, INITIA 03/01/2017 VANIA MCKINNEY MD Ot X58.XXXA EXPOSURE TO OTHER SPECIFIED FACTORS, INI 03/01/2017 VANIA MCKINNEY MD Ot Y93.E6 ACTIVITY, RESIDENTIAL RELOCATION 03/01/2017 VANIA MCKINNEY MD Ot Y99.8 OTHER EXTERNAL CAUSE STATUS 03/06/2017 VANIA MCKINNEY MD Ot S59.902A UNSPECIFIED INJURY OF LEFT ELBOW, INITIA 03/06/2017 VANIA MCKINNEY MD Ot X58.XXXA EXPOSURE TO OTHER SPECIFIED FACTORS, INI 03/06/2017 VANIA MCKINNEY MD Ot Y93.E6 ACTIVITY, RESIDENTIAL RELOCATION 03/06/2017 VANIA MCKINNEY MD Ot Y99.8 OTHER EXTERNAL CAUSE STATUS 03/14/2017 VANIA MCKINNEY MD Ot S59.902A UNSPECIFIED INJURY OF LEFT ELBOW, INITIA 03/14/2017 VANIA MCKINNEY MD Ot X58.XXXA EXPOSURE TO OTHER SPECIFIED FACTORS, INI 03/14/2017 VANIA MCKINNEY MD Ot Y93.E6 ACTIVITY, RESIDENTIAL RELOCATION 03/14/2017 VANIA MCKINNEY MD Ot Y99.8 OTHER EXTERNAL CAUSE STATUS 11/29/2017 VANIA MCKINNEY MD Ot S19.9XXA UNSPECIFIED INJURY OF NECK, INITIAL ENCO 11/29/2017 VANIA MCKINNEY MD Ot S49.92XA UNSP INJURY OF LEFT SHOULDER AND UPPER A 11/29/2017 VANIA MCKINNEY MD Ot W20.8XXA OTH CAUSE OF STRIKE BY THROWN, PROJECTED 12/18/2017 FAYE CORREA, VANIA Griffiths Ot S19.9XXA UNSPECIFIED INJURY OF NECK, INITIAL ENCO 12/18/2017 FAYE CORREA, VANIA Griffiths Ot S49.92XA UNSP INJURY OF LEFT SHOULDER AND UPPER A 12/18/2017 FAYE CORREA, VANIA Griffiths Ot W20.8XXA OTH CAUSE OF STRIKE BY THROWN, PROJECTED 01/02/2018 BRENDA CORREA YONI K Ot M47.22 OTHER SPONDYLOSIS WITH RADICULOPATHY, CE 01/02/2018 BRENDA CORREA YONI K Ot M47.24 OTHER SPONDYLOSIS WITH RADICULOPATHY, TH 01/02/2018 BRENDA CORREA YONI K Ot M48.02 SPINAL STENOSIS, CERVICAL REGION 01/03/2018 BRENDA CORREA YONI K Ot M47.27 OTHER SPONDYLOSIS WITH RADICULOPATHY, DARIAN 01/03/2018 BRENDA CORREA YONI K Ot M48.061 SPINAL STENOSIS, LUMBAR REGION WITHOUT N 01/03/2018 BRENDA CORREA YONI K Ot M51.16 INTERVERTEBRAL DISC DISORDERS W RADICULO 01/03/2018 BRENDA CORREA YONI K Ot M51.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, LUMBAR REGION 01/16/2018 BRENDA CORREA YONI K Ot M47.22 OTHER SPONDYLOSIS WITH RADICULOPATHY, CE 01/16/2018 BRENDA CORREA YONI K Ot M47.24 OTHER SPONDYLOSIS WITH RADICULOPATHY, 01/16/2018 BRENDA CORREA YONI K Ot M48.02 SPINAL STENOSIS, CERVICAL REGION 01/16/2018 BRENDA CORREA YONI K Ot M47.27 OTHER SPONDYLOSIS WITH RADICULOPATHY, DARIAN 01/16/2018 BRENDA CORREA YONI K Ot M48.061 SPINAL STENOSIS, LUMBAR REGION WITHOUT N 01/16/2018 BRENDA CORREA YONI K Ot M51.16 INTERVERTEBRAL DISC DISORDERS W RADICULO 01/16/2018 BRENDA CORREA YONI K Ot M51.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, LUMBAR REGION 03/29/2018 Ot 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 03/29/2018 FAYE CORREA, VANIA Griffiths Ot 722.4 CERVICAL DISC DEGEN 03/29/2018 REKHA CORREA, AKBAR Franco Ot 272.4 HYPERLIPIDEMIA NEC/NOS 03/29/2018 REKHAAKBAR FOX MD Ot 278.00 OBESITY, NOS 03/29/2018 AKBAR DA SILVA MD Ot 397.0 TRICUSPID VALVE DISEASE 03/29/2018 AKBAR DA SILVA MD Ot 401.9 HYPERTENSION NOS 03/29/2018 AKBAR DA SILVA MD Ot 424.0 MITRAL VALVE DISORDER 03/29/2018 AKBAR DA SILVA MD Ot 786.50 CHEST PAIN NOS 03/29/2018 FAYE CORREA, VANIA L Ot 724.1 PAIN IN THORACIC SPINE 03/29/2018 FAYE CORREA, VANIA L Ot E000.8 OTHER EXTERNAL CAUSE STATUS 03/29/2018 FAYE CORREA, VANIA L Ot E888.9 FALL NOS 03/29/2018 VANIA MCKINNEY MD L Ot R10.11 RIGHT UPPER QUADRANT PAIN 03/29/2018 VANIA MCKINNEY MD L Ot S59.902A UNSPECIFIED INJURY OF LEFT ELBOW, INITIA 03/29/2018 VANIA MCKINNEY MD L Ot X58.XXXA EXPOSURE TO OTHER SPECIFIED FACTORS, INI 03/29/2018 VANIA MCKINNEY MD L Ot Y93.E6 ACTIVITY, RESIDENTIAL RELOCATION 03/29/2018 VANIA MCKINNEY MD L Ot Y99.8 OTHER EXTERNAL CAUSE STATUS 03/29/2018 VANIA MCKNINEY MD L Ot S19.9XXA UNSPECIFIED INJURY OF NECK, INITIAL ENCO 03/29/2018 FAYE CORREA, VANIA L Ot S49.92XA UNSP INJURY OF LEFT SHOULDER AND UPPER A 03/29/2018 VANIA MCKINNEY MD L Ot W20.8XXA OTH CAUSE OF STRIKE BY THROWN, PROJECTED 03/29/2018 YONI GUTIERREZ MD Ot M47.22 OTHER SPONDYLOSIS WITH RADICULOPATHY, CE 03/29/2018 YONI GUTIERREZ MD Ot M47.24 OTHER SPONDYLOSIS WITH RADICULOPATHY, TH 03/29/2018 YONI GUTIERREZ MD Ot M48.02 SPINAL STENOSIS, CERVICAL REGION 03/29/2018 YONI GUTIERREZ MD Ot M47.27 OTHER SPONDYLOSIS WITH RADICULOPATHY, DARIAN 03/29/2018 YONI GUTIERREZ MD Ot M48.061 SPINAL STENOSIS, LUMBAR REGION WITHOUT N 03/29/2018 YONI GUTIERREZ MD Ot M51.16 INTERVERTEBRAL DISC DISORDERS W RADICULO 03/29/2018 KIRAN GUTIERREZ MDNON K Ot M51.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, LUMBAR REGION 04/02/2018 VANIA MCKINNEY MD Ot M25.511 PAIN IN RIGHT SHOULDER 04/15/2018 VANIA MCKINNEY MD Ot M25.511 PAIN IN RIGHT SHOULDER Procedures Code Description [place] [address] ROUTINE VENIPUNCTURE 09/30/2012 74933 LIPID PANEL 09/30/2012 68156 TSH 09/30/2012 92791 CBC 10/01/2012 41882 CMP 10/01/[id number] GFR CALC (RESULT ONLY) 10/01/2012 Robby Johnson 11/13/2012 PHYSI PHYSICAL THERAPY, VIA COSMO 12/17/2012 BART CHUNG 01/22/2013 Results Test Result Range Complete urinalysis with reflex to culture - 12/04/16 10:09 Urine color determination YELLOW NRG Urine clarity determination CLEAR NRG Urine pH measurement by test strip 6 5-9 Specific gravity of urine by test strip 1.020 1.016- 1.022 Urine protein assay by test strip, semi-quantitative NEGATIVE NEGATIVE Urine glucose detection by automated test strip NEGATIVE NEGATIVE Erythrocytes detection in urine sediment by light microscopy NEGATIVE NEGATIVE Urine ketones detection by automated test strip NEGATIVE NEGATIVE Urine nitrite detection by test strip NEGATIVE NEGATIVE Urine total bilirubin detection by test strip NEGATIVE NEGATIVE Urine urobilinogen measurement by automated test strip (mass/volume) NORMAL NORMAL Urine leukocyte esterase detection by dipstick NEGATIVE NEGATIVE Automated urine sediment erythrocyte count by microscopy (number/high power field) NONE NRG Automated urine sediment leukocyte count by microscopy (number/high power field ) RARE NRG Bacteria detection in urine sediment by light microscopy NEGATIVE NRG Squamous epithelial cells detection in urine sediment by light microscopy RARE NRG Crystals detection in urine sediment by light microscopy NONE NRG Casts detection in urine sediment by light microscopy NONE NRG Mucus detection in urine sediment by light microscopy NEGATIVE NRG Complete urinalysis with reflex to culture NO NRG Complete blood count (CBC) with automated white blood cell (WBC) differential - 12/04/16 10:30 Blood leukocytes automated count (number/volume) 8.1 10*3/uL 4.3-11.0 Blood erythrocytes automated count (number/volume) 4.82 10*6/uL 4.35-5.85 Venous blood hemoglobin measurement (mass/volume) 14.7 g/dL 13.3-17.7 Blood hematocrit (volume fraction) 42 % 40-54 Automated erythrocyte mean corpuscular volume 87 [foz_us] 80-99 Automated erythrocyte mean corpuscular hemoglobin (mass per erythrocyte) 31 pg 25-34 Automated erythrocyte mean corpuscular hemoglobin concentration measurement ( mass/volume) 35 g/dL 32-36 Automated erythrocyte distribution width ratio 13.2 % 10.0-14.5 Automated blood platelet count (count/volume) 276 10*3/uL 130-400 Automated blood platelet mean volume measurement 10.6 [foz_us] 7.4-10.4 Automated blood neutrophils/100 leukocytes 53 % 42-75 Automated blood lymphocytes/100 leukocytes 36 % 12-44 Blood monocytes/100 leukocytes 9 % 0-12 Automated blood eosinophils/100 leukocytes 1 % 0-10 Automated blood basophils/100 leukocytes 1 % 0-10 Blood neutrophils automated count (number/volume) 4.3 10*3 1.8-7.8 Blood lymphocytes automated count (number/volume) 2.9 10*3 1.0-4.0 Blood monocytes automated count (number/volume) 0.7 10*3 0.0-1.0 Automated eosinophil count 0.1 10*3/uL 0.0-0.3 Automated blood basophil count (count/volume) 0.1 10*3/uL 0.0-0.1 PT panel in platelet poor plasma by coagulation assay - 12/04/16 10:30 Prothrombin time (PT) in platelet poor plasma by coagulation assay 12.5 s 12.2-14.7 INR in platelet poor plasma or blood by coagulation assay 1.0 0.8-1.4 Activated partial thromboplastin time (aPTT) in platelet poor plasma bycoagulation assay - 12/04/16 10:30 Activated partial thromboplastin time (aPTT) in platelet poor plasma bycoagulation assay 27 s 24-35 Comprehensive metabolic panel - 12/04/16 10:30 Serum or plasma sodium measurement (moles/volume) 141 mmol/L 135-145 Serum or plasma potassium measurement (moles/volume) 4.0 mmol/L 3.6-5.0 Serum or plasma chloride measurement (moles/volume) 105 mmol/L 98-107 Carbon dioxide 25 mmol/L 21-32 Serum or plasma anion gap determination (moles/volume) 11 mmol/L 5-14 Serum or plasma urea nitrogen measurement (mass/volume) 17 mg/dL 7-18 Serum or plasma creatinine measurement (mass/volume) 0.80 mg/dL 0.60-1.30 Serum or plasma urea nitrogen/creatinine mass ratio 21 NRG Serum or plasma creatinine measurement with calculation of estimated glomerular filtration rate > NRG Serum or plasma glucose measurement (mass/volume) 99 mg/dL 70-105 Serum or plasma calcium measurement (mass/volume) 9.2 mg/dL 8.5-10.1 Serum or plasma total bilirubin measurement (mass/volume) 0.3 mg/dL 0.1-1.0 Serum or plasma alkaline phosphatase measurement (enzymatic activity/volume) 91 U/L 40-136 Serum or plasma aspartate aminotransferase measurement (enzymatic activity/ volume) 27 U/L 5-34 Serum or plasma alanine aminotransferase measurement (enzymatic activity/volume ) 88 U/L 0-55 Serum or plasma protein measurement (mass/volume) 7.7 g/dL 6.4-8.2 Serum or plasma albumin measurement (mass/volume) 4.5 g/dL 3.2-4.5 Magnesium - 12/04/16 10:30 Magnesium 2.7 mg/dL 1.8-2.4 Serum or plasma troponin i.cardiac measurement (mass/volume) - 12/04/16 10:30 Serum or plasma troponin i.cardiac measurement (mass/volume) < ng/ mL <0.30 Myoglobin, serum - 12/04/16 10:30 Myoglobin, serum 123.2 ng/mL 10.0-92.0 Lipase - 12/04/16 10:30 Lipase 18 U/L 8-78 Automated blood complete blood count (hemogram) panel - 02/01/19 16:42 Blood leukocytes automated count (number/volume) 12.4 10*3/uL 4.3-11.0 Blood erythrocytes automated count (number/volume) 4.64 10*6/uL 4.35-5.85 Venous blood hemoglobin measurement (mass/volume) 14.7 g/dL 13.3-17.7 Blood hematocrit (volume fraction) 39 % 40-54 Automated erythrocyte mean corpuscular volume 85 [foz_us] 80-99 Automated erythrocyte mean corpuscular hemoglobin

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
[2019-02-01] MEDS ORDERED: KETOROLAC 30 MG/ML VIAL IVP ONE (20:00)
[2019-02-01 20:27] VITALS: BP 115/73
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
== END 2019-02-01 20:27 | disposition home or self-care (01) ==
LOC: EDUNIT# 16:39 → ER 16:40
DX: S82.891A Other fracture of right lower leg, initial encounter for closed fracture (principal); S81.812A Laceration without foreign body, left lower leg, initial encounter; R40.2142 Coma scale, eyes open, spontaneous, at arrival to emergency department; R40.2252 Coma scale, best verbal response, oriented, at arrival to emergency department; R40.2362 Coma scale, best motor response, obeys commands, at arrival to emergency department; E78.00 Pure hypercholesterolemia, unspecified; I10 Essential (primary) hypertension; K21.9 Gastro-esophageal reflux disease without esophagitis; F41.9 Anxiety disorder, unspecified; F32.9 Major depressive disorder, single episode, unspecified; E88.40 Mitochondrial metabolism disorder, unspecified; Z98.52 Vasectomy status; Z88.0 Allergy status to penicillin; Z88.8 Allergy status to other drugs, medicaments and biological substances; Z23 Encounter for immunization; V49.40XA Driver injured in collision with unspecified motor vehicles in traffic accident, initial encounter; Y92.410 Unspecified street and highway as the place of occurrence of the external cause
CPT/HCPCS: 12001; 36415; 70450; 71045; 71260; 72125; 72170; 73562; 73590; 73610; 74177; 80048; 80076; 80320; 85027; 86850; 86900; 86901; 90471; 90715; 93041; 96374; 96375